=== PATIENT | female | born 1960 | race Caucasian/White ===

== ENCOUNTER 2019-11-12 14:21 | Emergency (ER) | payer SELFPAY ==
[~2019-11-12] VITALS: Ht 152.4 cm; Wt 81.8 kg
[2019-11-12 14:38] VITALS: BP 106/60
[2019-11-12 15:32] LABS: BASO % 0 % (0-3); EOS # 0.3 x10^3/uL (0.0-0.7); EOS % 3 % (0-3); HEMATOCRIT 37.1 % (36.0-47.0); HEMOGLOBIN 12.2 g/dL (12.0-15.5); LYMPH # 1.9 x10^3/uL (1.0-4.8); LYMPH % 22 % (24-48); MEAN CORPUSCULAR HEMOGLOBIN 28 pg (25-35); MEAN CORPUSCULAR HGB CONC 33 g/dL (31-37); MEAN CORPUSCULAR VOLUME 86 fL (79-100); MONO # 0.7 x10^3/uL (0.0-1.1); MONO % 8 % (0-9); NEUT # 5.8 x10^3uL (1.8-7.7); NEUT % 67 % (31-73); PLATELET COUNT 267 x10^3/uL (140-400); RED CELL DISTRIBUTION WIDTH 13.8 % (11.5-14.5); WHITE BLOOD COUNT 8.6 x10^3/uL (4.0-11.0)
[2019-11-12 15:40] LABS: C REACTIVE PROTEIN 61.5 mg/L (0-3.3); URIC ACID 6.6 mg/dL (2.6-6.0)
[2019-11-12] MEDS ORDERED: HYDR-3165 PO (16:39)
[2019-11-12] MEDS ORDERED: INDO25CA21 PO (16:39)
[2019-11-12] MEDS ORDERED: METH4TAB2 PO (16:39)
--- NOTE | 2019-11-12 16:39 | PHYS DOC ---
Past History Past Medical History: Anxiety, Depression, Hypertension Past Surgical History: Cholecystectomy, Other Additional Past Surgical Histo: spinal stimulator; partial left lobectomy Alcohol Use: None Adult General Chief Complaint Chief Complaint: WRIST PAIN [facility] HPI Patient is a 59-year-old female who presents with complaint of pain in her right wrist and forearm that has been present ever since having the in her right arm back on October 20. Patient states that she was diagnosed with a clot in her wrist and was started on naproxen as well as a baby aspirin as well as antibio tics. Patient states that her swelling is gone down a bit but now she is having some numbness in her hand and fingers. She is concerned that the blood clot may be spreading despite the swelling going down. Patient rates the pain as moderate.[] Review of Systems Review of Systems Constitutional: Denies fever or chills [] Respiratory: Denies cough or shortness of breath [] Cardiovascular: No additional information not addressed in HPI [] Musculoskeletal: Complains of right wrist and forearm pain [] Integument: Denies rash or skin lesions [] Neurologic: Complains of sensory changes to right hand and fingers. [] All other systems were reviewed and found to be within normal limits, except as documented in this note. Allergies Allergies Allergies Coded Allergies Type Severity Reaction Last Updated Verified erythromycin base Allergy Unknown 11/12/19 Yes Physical Exam Physical Exam Constitutional: Well developed, well nourished, no acute distress, non-toxic appearance. [] HENT: Normocephalic, atraumatic, bilateral external ears normal, oropharynx moist, no oral exudates, nose normal. [] Eyes: PERRLA, EOMI, conjunctiva normal, no discharge. [] Neck: Normal range of motion, no tenderness, supple, no stridor. [] Cardiovascular:Heart rate regular rhythm, no murmur [] Lungs & Thorax: Bilateral breath sounds clear to auscultation [] Abdomen: Bowel sounds normal, soft. [] Skin: Warm, dry, no erythema, no rash. [] Extremities: Examination of right wrist demonstrates soft tissue swelling to the volar aspect of the wrist with tenderness to palpation overlying this area. There is also erythema noted in the wrist with tenderness to palpation. [] Neurologic: Alert and oriented X 3, no focal deficits noted. [] Current Patient Data Vital Signs Vital Signs Date Time Temp Pulse Resp B/P (MAP) Pulse Ox O2 Delivery O2 Flow Rate FiO2 11/12/19 14:38 89 18 106/60 (75) 98 Lab Results Laboratory Tests Test 11/12/19 15:13 White Blood Count 8.6 x10^3/uL (4.0-11.0) Red Blood Count 4.30 x10^6/uL (3.50-5.40) Hemoglobin 12.2 g/dL (12.0-15.5) Hematocrit 37.1 % (36.0-47.0) Mean Corpuscular Volume 86 fL (79-100) Mean Corpuscular Hemoglobin 28 pg (25-35) Mean Corpuscular Hemoglobin Concent 33 g/dL (31-37) Red Cell Distribution Width 13.8 % (11.5-14.5) Platelet Count 267 x10^3/uL (140-400) Neutrophils (%) (Auto) 67 % (31-73) Lymphocytes (%) (Auto) 22 % (24-48) L Monocytes (%) (Auto) 8 % (0-9) Eosinophils (%) (Auto) 3 % (0-3) Basophils (%) (Auto) 0 % (0-3) Neutrophils # (Auto) 5.8 x10^3uL (1.8-7.7) Lymphocytes # (Auto) 1.9 x10^3/uL (1.0-4.8) Monocytes # (Auto) 0.7 x10^3/uL (0.0-1.1) Eosinophils # (Auto) 0.3 x10^3/uL (0.0-0.7) Basophils # (Auto) 0.0 x10^3/uL (0.0-0.2) Uric Acid 6.6 mg/dL (2.6-6.0) H C-Reactive Protein 61.5 mg/L (0-3.3) H EKG EKG [] Radiology/Procedures Radiology/Procedures [] Impressions: PROCEDURE: VENOUS UPPER EXTREMITY RIGHT EXAM: Right upper extremity venous Doppler. HISTORY: Right upper extremity pain/swelling. COMPARISON: None. FINDINGS: Grayscale and Doppler analysis of the right upper extremity deep venous system was performed with graded compression and augmentation. The internal jugular, subclavian, axillary, brachial, basilic, cephalic, radial and ulnar veins were assessed. There is no evidence of deep venous thrombosis. There is superficial venous thrombus within the cephalic and basilic veins in the forearm. IMPRESSION: 1. Superficial venous thrombus within the right cephalic and basilic veins in the forearm. 2. No evidence of deep venous thrombosis. Electronically signed by: Zechariah Yoder MD (11/12/2019 4:44 PM) [id number] Course & Med Decision Making Course & Med Decision Making Pertinent Labs and Imaging studies reviewed. (See chart for details) [] Dragon Disclaimer Dragon Disclaimer This electronic medical record was generated, in whole or in part, using a voice recognition dictation system. Departure Departure: Impression: Primary Impression: Gout Additional Impression: Superficial thrombophlebitis Disposition: HOME, SELF-CARE Condition: STABLE Referrals: PCP,NIDHI (PCP) Patient Instructions: Gout Scripts Indomethacin (INDOMETHACIN) 25 Mg Capsule 1 CAP PO TID PRN for PAIN for 5 Days, #15 CAP 0 Refills with food Prov: CAMERON PETTIT Jr. DO 11/12/19 Hydrocodone Bit/Acetaminophen (NORCO 5-325 TABLET) 1 Each Tablet 1 TAB PO PRN Q6HRS PRN for PAIN, #12 TAB 0 Refills Prov: CAMERON PETTIT Jr. DO 11/12/19 Methylprednisolone (MEDROL) 4 Mg Tab.ds.pk 1 PKG PO UD for inflammation, #1 PKG Prov: CAMERON PETTIT Jr. DO 11/12/19 Problem Qualifiers Primary Impression: Gout Gout site: wrist Gout etiology: unspecified cause Chronicity: acute Laterality: right Qualified Codes: M10.9 - Gout, unspecified Additional Impression: Superficial thrombophlebitis Superficial thrombophlebitis-Involved body area: upper extremity Laterality: right Qualified Codes: I80.8 - Phlebitis and thrombophlebitis of other sites CAMERON PETTIT Jr. DO Nov 12, 2019 16:39
--- NOTE | 2019-11-12 16:47 | RAD ---
EXAM: Right upper extremity venous Doppler. HISTORY: Right upper extremity pain/swelling. COMPARISON: None. FINDINGS: Grayscale and Doppler analysis of the right upper extremity deep venous system was performed with graded compression and augmentation. The internal jugular, subclavian, axillary, brachial, basilic, cephalic, radial and ulnar veins were assessed. There is no evidence of deep venous thrombosis. There is superficial venous thrombus within the cephalic and basilic veins in the forearm. IMPRESSION: 1. Superficial venous thrombus within the right cephalic and basilic veins in the forearm. 2. No evidence of deep venous thrombosis. Electronically signed by: Zechariah Yoder MD (11/12/2019 4:44 PM) [id number]
== END 2019-11-12 17:00 | disposition home or self-care (01) ==
LOC: ER 14:21
DX: M10.9 Gout, unspecified (principal); I80.8 Phlebitis and thrombophlebitis of other sites; I10 Essential (primary) hypertension; Z88.1 Allergy status to other antibiotic agents
CPT/HCPCS: 36415; 84550; 85025; 86140; 93971; 99284

== ENCOUNTER 2020-01-23 16:42 | Emergency (ER) | payer SELFPAY ==
[~2020-01-23] VITALS: Ht 152.4 cm; Wt 78.6 kg
[~2020-01-23 16:42] MED LIST: HYDR-3165 PO; INDO25CA21 PO; METH4TAB2 PO
[2020-01-23] MEDS ORDERED: IPRATRPIUM/ALBUTEROL 0.5/2.5MG 3 ML NEBU. ONE (17:20)
[2020-01-23] MEDS ORDERED: IPRATRPIUM/ALBUTEROL 0.5/2.5MG 3 ML NEBU. NEB ONE (17:30)
--- NOTE | 2020-01-23 17:39 | PHYS DOC ---
Past History Past Medical History: Anxiety, Depression, Hypertension, Pneumonia (BLANE CARPENTER DO) Past Surgical History: Cholecystectomy, Other Additional Past Surgical Histo: spinal stimulator; partial left lobectomy (BLANE CARPENTER DO) Alcohol Use: None (BLANE CARPENTER DO) General Adult EDM: Chief Complaint: SHORTNESS OF BREATH HPI: HPI: 59-year-old female presents with shortness of breath. The patient has had increased shortness of breath for last 2 days. She used her home albuterol 3 times yesterday and twice today without relief. She just does not feel like she can take a full breath. She has not had a fever above 99. She has a mild, intermittent cough. No history of smoking or COPD. She did have a lower lobe pneumonectomy due to empyema from pneumonia 3 years ago. Since that time, she has had more difficulty with respiratory symptoms and breathing in general. She also reports some chest tightness, but denies janene pain. Denies diaphoresis. It is not better or worse with exertion. No cardiac history. She recently moved here from [place]. (BLANE CARPENTER DO) Review of Systems: Review of Systems: Constitutional: Denies fever or chills Eyes: Denies change in visual acuity HENT: Denies nasal congestion or sore throat Respiratory: shortness of breath, mild cough Cardiovascular: Chest tightness GI: Denies abdominal pain, nausea, vomiting, bloody stools or diarrhea : Denies dysuria Musculoskeletal: Denies back pain or joint pain Integument: Denies rash Neurologic: Denies headache, focal weakness or sensory changes Endocrine: Denies polyuria or polydipsia Lymphatic: Denies swollen glands Psychiatric: Denies depression or anxiety (BLANE CARPENTER DO) Heart Score: Risk Factors: Risk Factors: DM, Current or recent (<one month) smoker, HTN, HLP, family history of CAD, obesity. Risk Scores: Score 0 - 3: 2.5% MACE over next 6 weeks - Discharge Home Score 4 - 6: 20.3% MACE over next 6 weeks - Admit for Clinical Observation Score 7 - 10: 72.7% MACE over next 6 weeks - Early Invasive Strategies (BLANE CARPENTER DO) Current Medications: Current Meds: Current Medications Medications (Trade) Dose Ordered Sig/Magdy Start Time Stop Time Status Last Admin Dose Admin Albuterol/ Ipratropium (Duoneb) 3 ml STK-MED ONCE 01/23/20 17:20 01/23/20 17:20 DC (BLANE CARPENTER DO) Allergies: Allergies: Allergies Coded Allergies Type Severity Reaction Last Updated Verified erythromycin base Allergy Unknown 11/12/19 Yes (BLANE CARPENTER DO) Physical Exam: PE: Constitutional: Well developed, well nourished, no acute distress, non-toxic appearance. [] HENT: Normocephalic, atraumatic, bilateral external ears normal, oropharynx moist, no oral exudates, nose normal. [] Eyes: PERRLA, EOMI, conjunctiva normal, no discharge. [] Neck: Normal range of motion, no tenderness, supple, no stridor. [] Cardiovascular: Heart rate regular rhythm, no murmur [] Lungs & Thorax: Bilateral breath sounds diminished but clear to auscultation [] Abdomen: Bowel sounds normal, soft, no tenderness, no masses, no pulsatile masses. [] Skin: Warm, dry, no erythema, no rash. [] Back: No tenderness, no CVA tenderness. [] Extremities: No tenderness, no cyanosis, no clubbing, ROM intact, no edema. [] Neurologic: Alert and oriented X 3, normal motor function, normal sensory function, no focal deficits noted. [] Psychologic: Affect normal, judgement normal, mood normal. [] (BLANE CARPENTER DO) Current Patient Data: Vital Signs: Vital Signs Date Time Temp Pulse Resp B/P (MAP) Pulse Ox O2 Delivery O2 Flow Rate FiO2 01/23/20 17:27 95 Room Air 01/23/20 16:50 98.7 97 20 162/91 (114) (BLANE CARPENTER DO) EKG: EKG: Sinus rhythm, rate 89, normal axis, no ST elevations or depressions. [] (BLANE CARPENTER DO) Radiology/Procedures: Radiology/Procedures: [] Impressions: PORTABLE CHEST 1V History: Shortness of breath Comparison: None. Findings: Single view of the chest is submitted. No pneumothorax is identified. There is some patchy left base airspace opacity. There is no significant dependent pleural fluid. There is at least moderate if not large hiatal hernia. There are thoracic spinal stimulator leads. There is cervical fusion hardware not fully included. Impression: 1. There is patchy left base atelectasis or infiltrate. 2. There is hiatal hernia. Electronically signed by: Laureano Call MD (01/23/2020 5:50 PM) [facility] DICTATED AND SIGNED BY: LAUREANO CALL MD DATE: 01/23/20 1750 CC: BLANE CARPENTRE DO; PCP,NIDHI ~ (BLANE CARPENTER DO) Course & Med Decision Making: Course & Med Decision Making Pertinent Labs and Imaging studies reviewed. (See chart for details) The patient's EKG is negative for acute findings. The patient's chest x-ray is significant for left lower atelectasis or infiltrate. I have ordered a gram of Rocephin and doxycycline since patient is allergic to erythromycin. Her work-up is still pending. I am signing her out to Dr. Rogers at 1800 for further management. He will determine her final disposition. [] (BLANE CARPENTER DO) Course & Med Decision Making See report for details- Impression: 1. Lt. Lower Lobe Pneumonia 2. Cough 3. Leukocytosis 12.2 4. Anemia 11.7 Hgb 5. Mild Hypokalemia 3.3 6. Mild Elevation Creat. 1.3 Patient use MDI 2 puffs 4 times a day. Patient take [id number] Tylenol and ibuprofen as needed for discomfort. Patient use doxycycline 100 mg twice a day. Follow-up primary care. Return if any concerns. Recommend self isolation for 14 days. Wear a mask when outside the home need to buy necessities. Practice social isolation. Practice social distancing. (JASON ROGERS MD) Dragon Disclaimer: Dragon Disclaimer: This electronic medical record was generated, in whole or in part, using a voice recognition dictation system. (BLANE CARPENTER DO) Departure Departure: Impression: Primary Impression: Left lower lobe pneumonia Qualified Codes: J18.9 - Pneumonia, unspecified organism Disposition: HOME/RESIDENCE PRIOR TO ADM Condition: STABLE Referrals: PCP,NO (PCP) Scripts Doxycycline Hyclate (DOXYCYCLINE HYCLATE) 100 Mg Tablet. 1 TAB PO BID for pneumonia Lt lower, #20 TAB Prov: JASON ROGERS MD 01/23/20 Dragon Disclaimer This chart was dictated in whole or in part using Voice Recognition software in a busy, high-work load, and often noisy Emergency Department environment. It may contain unintended and wholly unrecognized errors or omissions. (JASON ROGERS MD) BLANE CARPENTER DO January 23, 2020 17:39 JASON ROGERS MD January 23, 2020 20:50
--- NOTE | 2020-01-23 17:44 | EKG ---
[address] [address] Test Date: 2020-01-23 Test Time: 17:36:31 Pat Name: JUSTIN MORENO Department: Room: Gender: F [employer] Specialist: : [id number] Requested By: BLANE CARPENTER Order Number: [id number] Reading MD: Troy Mariano Measurements Intervals Page Rate: 89 P: 41 VA: 128 QRS: 26 QRSD: 96 T: 43 QT: 366 QTc: 446 Interpretive Statements SINUS RHYTHM Electronically Signed On 01-24-2020 8:17:55 CDT by Troy Mariano
--- NOTE | 2020-01-23 17:53 | RAD ---
PORTABLE CHEST 1V History: Shortness of breath Comparison: None. Findings: Single view of the chest is submitted. No pneumothorax is identified. There is some patchy left base airspace opacity. There is no significant dependent pleural fluid. There is at least moderate if not large hiatal hernia. There are thoracic spinal stimulator leads. There is cervical fusion hardware not fully included. Impression: 1. There is patchy left base atelectasis or infiltrate. 2. There is hiatal hernia. Electronically signed by: Fantasma Call MD (01/23/2020 5:50 PM) [facility]
[2020-01-23] MEDS ORDERED: DOXYCYCLINE HYCLATE 100 MG TABLET PO ONE (18:15)
[2020-01-23] MEDS ORDERED: cefTRIAXone SODIUM 1 GM VIAL ONE (18:19)
[2020-01-23] MEDS ORDERED: IV NORMAL SALINE 50ML 50 ML ONE (18:19)
[2020-01-23 18:35] LABS: BASO % 0 % (0-3); EOS # 0.1 x10^3/uL (0.0-0.7); EOS % 1 % (0-3); HEMATOCRIT 36.2 % (36.0-47.0); HEMOGLOBIN 11.7 g/dL (12.0-15.5); LYMPH # 3.6 x10^3/uL (1.0-4.8); LYMPH % 30 % (24-48); MEAN CORPUSCULAR HEMOGLOBIN 26 pg (25-35); MEAN CORPUSCULAR HGB CONC 32 g/dL (31-37); MEAN CORPUSCULAR VOLUME 81 fL (79-100); MONO # 0.9 x10^3/uL (0.0-1.1); MONO % 7 % (0-9); NEUT # 7.6 x10^3uL (1.8-7.7); NEUT % 62 % (31-73); PLATELET COUNT 452 x10^3/uL (140-400); RED BLOOD COUNT 4.48 x10^6/uL (3.50-5.40); RED CELL DISTRIBUTION WIDTH 15.7 % (11.5-14.5); WHITE BLOOD COUNT 12.2 x10^3/uL (4.0-11.0)
[2020-01-23 18:44] LABS: CALCIUM 9.5 mg/dL (8.5-10.1); CREATININE 1.3 mg/dL (0.6-1.0); GFR 42.1; POTASSIUM 3.3 mmol/L (3.5-5.1)
[2020-01-23 18:57] LABS: ALBUMIN 4.2 g/dL (3.4-5.0); ALBUMIN/GLOBULIN RATIO 1.1 (1.0-1.7); TOTAL BILIRUBIN 0.3 mg/dL (0.2-1.0)
[2020-01-23 19:02] VITALS: BP 120/63
[2020-01-23] MEDS ORDERED: DOXY-96 PO (19:08)
== END 2020-01-23 19:22 | disposition home or self-care (01) ==
LOC: ER 16:42
DX: J18.1 Lobar pneumonia, unspecified organism (principal); D72.829 Elevated white blood cell count, unspecified; E87.6 Hypokalemia; D64.9 Anemia, unspecified; R79.89 Other specified abnormal findings of blood chemistry; I10 Essential (primary) hypertension; Z88.1 Allergy status to other antibiotic agents
CPT/HCPCS: 36415; 71045; 80053; 83880; 84484; 85025; 87040; 93005; 94640; 96365; 99285; J0696